=== PATIENT | female | born 1950 | race Caucasian/White ===

== ENCOUNTER → 2017-03-12 | Outpatient (CLI) | payer OTHER ==
--- NOTE | 2017-03-12 15:01 | MAMMOGRAPHY REPORT ---
BILATERAL DIGITAL SCREENING MAMMOGRAM TOMOSYNTHESIS WITH CAD: 03/12/2017 CLINICAL HISTORY: Routine screening. TECHNIQUE: Bilateral breast tomosynthesis in addition to standard 2D mammography was performed. Toñae nt study was also evaluated with a Computer Aided Detection (CAD) system. COMPARISON: Comparison is made to exams dated: 03/09/2016 mammogram, 03/01/2015 mammogram, 02/24/2014 mammogram, 02/20/2013 mammogram, 01/11/2012 mammogram, and 01/06/2011 mammogram - [facility]. BREAST COMPOSITION: There are scattered areas of fibroglandular density in both breasts. FINDINGS: There is a possible cluster of microcalcifications in the upper outer middle to posterior left breast, for which additional spot magnification views are recommended. There are other scattered benign rim calcifications in both breasts. No other suspicious mass, jaqui ectural distortion or cluster of microcalcifications is seen. IMPRESSION: ACR BI-RADS CATEGORY 0: INCOMPLETE EVALUATION: NEED ADDITIONAL IMAGING EVALUATION The possible cluster of microcalcifications in the left upper outer breast needs additional evaluatio n. The patient will be called to schedule an appointment. Approximately 10% of breast cancers are not detected with mammography. A negative mammographic report should not delay biopsy if a clinically suggestive mass is present. Brenda Salvador M.D. ay/:03/12/2017 07:57:57 [employer] Dispatcher: Danna PALACIO(Jose)(C[place]), [facility] letter sent: Addl Imaging 0 BI-RADS Code: ACR BI-RADS Category 0: Incomplete Evaluation: Need Additional Imaging Evaluation
== END | disposition home or self-care (01) ==
LOC: C.MAMM 07:08
PROVIDERS: ATTEND Student in an Organized Health Care Education/Training Program
DX: Z12.31 Encounter for screening mammogram for malignant neoplasm of breast (principal); R92.1 Mammographic calcification found on diagnostic imaging of breast

== ENCOUNTER → 2017-03-16 | Outpatient (CLI) | payer OTHER ==
--- NOTE | 2017-03-16 15:38 | MAMMOGRAPHY REPORT ---
UNILATERAL LEFT DIGITAL DIAGNOSTIC MAMMOGRAM: 03/16/2017 CLINICAL HISTORY: Callback from screening mammogram for left breast calcifications. TECHNIQUE: Spot magnification left CC and ML views were obtained. COMPARISON: Comparison is made to exams dated: 03/12/2017 mammogram, 03/09/2016 mammogram, 03/01/2015 mammogram, 02/24/2014 mammogram, 01/06/2011 mammogram - [facility], and 12/26/2006. BREAST COMPOSITION: There are scattered areas of fibroglandular density in the left breast. FINDINGS: There is a small 2 mm cluster of punctate benign-appearing calcifications within the left u pper outer quadrant. The calcifications are stable compared to prior exams including the 2014 and Oc tober 2013 exam, and are considered benign given long-term stability as well as the benign morphology . Other scattered benign-appearing calcifications are noted. IMPRESSION: ACR BI-RADS CATEGORY 2: BENIGN Small cluster of punctate benign-appearing calcifications in the left upper outer quadrant is stable dating back to at least the 2013 exam, and is considered benign given long-term stability and benign morphology. There is no mammographic evidence of malignancy. A 1 year screening mammogram is recomme nded. The patient has been verbally notified of the results. Approximately 10% of breast cancers are not detected with mammography. A negative mammographic report should not delay biopsy if a clinically suggestive mass is present. Rema Gonzalez M.D. /:03/16/2017 11:35:30 Applications Coordinator: En[place] RAMIREZ)([place]), [facility] letter sent: Normal 1/2 BI-RADS Code: ACR BI-RADS Category 2: Benign
== END | disposition home or self-care (01) ==
LOC: C.MAMM 11:06
PROVIDERS: ATTEND Student in an Organized Health Care Education/Training Program
DX: R92.0 Mammographic microcalcification found on diagnostic imaging of breast (principal)